=== PATIENT | male | born 1970 | race Caucasian/White ===

== ENCOUNTER → 2021-10-23 15:29 | Outpatient (BNVA) | payer OTHER, SELFPAY | PROVIDERS: PCP Physician Assistant Medical; Visit Provider Surgery | DX: D17.1 Benign lipomatous neoplasm of skin and subcutaneous tissue of trunk (principal) | CPT/HCPCS: 99202 ==

== ENCOUNTER 2021-12-01 07:44 | Outpatient (REF) | payer OTHER, SELFPAY ==
[2021-12-01 07:51] VITALS: BP 140/70; PULSE 92; RESP 16; TEMP 36.4; O2SAT 98
[2021-12-01 07:52] VITALS: BMI 34.5
--- NOTE | 2021-12-01 08:31 | W.PM.OPN ---
Operative Note Operative Note Date of Service: 12/01/21 Narrative: Preop diagnosis: Lipoma upper back Postop diagnosis: The same Procedure: Excision of, upper back under local anesthesia Surgeon: Michael Overton MD The patient is a 51-year-old male referred to me because of large lipomatous mass on the upper back. He understood the technique of excision under local anesthesia. He was aware of the risks, benefits, and alternatives He was brought to the minor procedure room. He was placed in prone position. The area of the lipomas prepped and draped. Lidocaine 1% was used for local anesthesia. I made an incision on the skin overlying the lipoma using a blade 15 and this was carried down through the full-thickness of the skin and subcutaneous fat with the same blade. I continued to dissect until I was able to visualize the lipomatous mass. I sharply dissected the lipoma off the rest of subcutaneous layer. The lipoma did not have ill-defined planes so we had to do with dissection slowly and deliberately. Eventually I was able to deliver the entire lipoma. This measured about 4.5 cm by 4 in diameter. I irrigated the area of the excision. Closed the incision with full-thickness nylon 3-0 interrupted sutures. Dressings were applied. The procedure was completed The patient tolerated the procedure well. There were no complications noted. He was given wound care instructions. I will see him in the office for removal ofl sutures.
[2021-12-01 08:33] VITALS: BP 140/78; PULSE 85; RESP 16; O2SAT 96
== END 2021-12-01 07:45 | disposition home or self-care (01) ==
LOC: HO.MS 07:44
PROVIDERS: PCP Physician Assistant Medical; Visit Provider Surgery
PROC: (CPT 21931; principal; 2021-12-01 08:00)
DX: D17.1 Benign lipomatous neoplasm of skin and subcutaneous tissue of trunk (principal)
CPT/HCPCS: 21931; 88304

== ENCOUNTER → 2021-12-15 13:08 | Outpatient (BNVA) | payer OTHER, SELFPAY | PROVIDERS: PCP Physician Assistant Medical; Visit Provider Surgery | DX: D17.1 Benign lipomatous neoplasm of skin and subcutaneous tissue of trunk (principal) ==